=== PATIENT | male | born 1965 | race Caucasian/White ===

== ENCOUNTER → 2016-11-18 | Outpatient (CLI) | payer OTHER ==
[~2016-11-18] MED LIST: A-G PROFEN200 MG PO; ALDACTONE25 MG PO; AUGMENTIN 875 M1 TAB PO; B-1100 MG PO; BACTRIM DS 8001 TA1 PO; CIPRO500 MG PO; CLARITIN10 MG PO; CORICIDIN 325 M1 TAB; DIGOXIN0.25 MG PO; DOXYCYCLINE MO100 MG PO; DOXYCYLINE50 MG PO; FOLIC ACID1 MG PO; IBUPROFEN 30 M800 MG PO; KEFLEX250 MG PO; KEFLEX500 MG PO; LIBRIUM10 MG PO; LIDEX 0.05% CRE15 GM T; LISINOPRIL5 MG PO; MEDROL DOSEPAK4 MG PO; METOPROLOL50 MG PO; MULTIVITAMIN1 CTB PO; PHENERGAN W/CO480 ML PO; PREDNICOT20 MG PO; PROAIR HFA0.09 MG/AC IH; PROVENTIL0.09 MG/AC IH; VENTOLIN0.09 MG/AC PO; VICODIN ES 7501 TAB PO; ZOFRAN4 MG PO
== END | disposition home or self-care (01) ==
LOC: CARD 10:25
DX: I42.9 Cardiomyopathy, unspecified (principal); I07.1 Rheumatic tricuspid insufficiency; I37.1 Nonrheumatic pulmonary valve insufficiency

== ENCOUNTER 2016-12-11 11:21 | Inpatient (IN) | payer OTHER ==
[~2016-12-11] VITALS: Ht 180.3 cm; Wt 75.0 kg
[2016-12-11 12:04] VITALS: BP 142/94
[2016-12-11 12:45] LABS: BILIRUBIN NEGATIVE (NEGATIVE); BLOOD NEGATIVE (NEGATIVE); CLARITY CLEAR (CLEAR); COLOR YELLOW (YELLOW); GLUCOSE NEGATIVE (NEGATIVE); KETONE NEGATIVE (NEGATIVE); LEUKO ESTERASE NEGATIVE (NEGATIVE); NITRITE NEGATIVE (NEGATIVE); PH 5.5 (5.0-9.0); PROTEIN NEGATIVE (NEGATIVE); SPECIFIC GRAVITY <= 1.005 (1.005-1.030); UROBILINOGEN 0.2 E.U./dl (0.2-1.0)
[2016-12-11 12:46] LABS: BASO % 0.4 % (0.0-1.0); EOS # 0.2 10*3/uL (0.0-0.4); EOS % 2.2 % (1.0-4.0); HEMATOCRIT 40.2 % (42.0-52.0); HEMOGLOBIN 13.7 g/dl (14.0-18.0); IG # 0.1 10*3/uL (0.0-0.1); LYMPH # 2.5 10*3/uL (1.3-4.4); LYMPH % 32.2 % (27.0-41.0); MEAN CELL VOLUME 89.9 fl (80.0-94.0); MEAN CORPUSCULAR HGB 30.6 pg (27.0-31.0); MEAN CORPUSCULAR HGB CONC 34.1 g/dl (33.0-37.0); MEAN PLATELET VOLUME 9.2 fl (9.6-12.3); MONO # 0.9 10*3/uL (0.1-1.0); MONO % 11.3 % (3.0-9.0); NEUT # 4.2 10*3/uL (2.3-7.9); NEUT % 53.3 % (47.0-73.0); PLATELET COUNT AUTOMATED 163 10*3/uL (130-400); RED BLOOD COUNT 4.47 10*6/uL (4.50-5.90); RED CELL DISTRI WIDTH 13.8 % (0-14.5); WHITE BLOOD COUNT 7.9 10*3/uL (4.8-10.8)
[2016-12-11 12:51] LABS: URINE REFLEX COMMENT NO (NO)
[2016-12-11 12:54] LABS: URINE AMPHETAMINES < 1000 (1000ng/ml); URINE BARBITURATES < 200 (200ng/ml); URINE COCAINE < 300 (300ng/ml)
[2016-12-11 12:57] LABS: INTERNATIONAL NORM RATIO 0.9 (2.0-3.5); PROTHROMBIN TIME 9.4 SECONDS (9.0-12.4)
[2016-12-11 13:06] LABS: ALBUMIN 3.6 gm/dl (3.1-4.5); ALKALINE PHOSPHATASE 101 U/L (45-117); BILIRUBIN, TOTAL 0.4 mg/dl (0.2-1.0); BUN 13 mg/dl (7-24); CARBON DIOXIDE 26 mmol/L (21-32); CHLORIDE 105 mmol/L (98-107); EST GLOM FILT AFRICAN AMERICAN > 60 ml/min; GLUCOSE 98 mg/dL (65-99); POTASSIUM 4.1 mmol/L (3.5-5.1); SGOT/AST 20 IU/L (3-35); SGPT/ALT 21 U/L (12-78); SODIUM 138 mmol/L (136-145)
[2016-12-11 13:07] LABS: TOTAL PROTEIN 6.6 gm/dL (6.4-8.2)
[2016-12-11 16:00] VITALS: BP 130/85
[2016-12-11] MEDS ORDERED: NATURE'S BLEND F1 MG PO (16:52)
[2016-12-11] MEDS ORDERED: THIAMINE HCL50 MG PO (16:52)
[2016-12-11] MEDS ORDERED: ALDACTONE25 M1 PO (16:58)
[2016-12-11] MEDS ORDERED: ZESTRIL,PRINIVIL5 MG PO (16:58)
[2016-12-11] MEDS ORDERED: REMERON15 M2 PO (17:00)
[2016-12-11] MEDS ORDERED: ZOLOFT100 MG PO (17:00)
[2016-12-11 20:00] VITALS: BP 122/86
[2016-12-12] VITALS: BP 121/80
[2016-12-12 04:30] VITALS: BP 130/86
[2016-12-12 08:00] VITALS: BP 128/86
[2016-12-12 12:00] VITALS: BP 136/93
[2016-12-12 16:00] VITALS: BP 115/70
[2016-12-12 20:00] VITALS: BP 105/74
[2016-12-13] VITALS: BP 95/66
[2016-12-13 08:00] VITALS: BP 111/80
[2016-12-13 12:00] VITALS: BP 106/69
== END 2016-12-13 16:11 | disposition left against medical advice (07) | DRG 894 ==
LOC: 4E 11:21
PROVIDERS: Internal Medicine Nephrology
DX: F10.239 Alcohol dependence with withdrawal, unspecified (principal); I50.32 Chronic diastolic (congestive) heart failure; Z95.0 Presence of cardiac pacemaker; E78.5 Hyperlipidemia, unspecified; I45.6 Pre-excitation syndrome; F17.210 Nicotine dependence, cigarettes, uncomplicated; Z80.1 Family history of malignant neoplasm of trachea, bronchus and lung; Z83.3 Family history of diabetes mellitus; Z82.49 Family history of ischemic heart disease and other diseases of the circulatory system; Z88.1 Allergy status to other antibiotic agents; R00.2 Palpitations; I51.9 Heart disease, unspecified; D64.9 Anemia, unspecified; R19.7 Diarrhea, unspecified

== ENCOUNTER 2016-12-14 15:07 | Inpatient (IN) | payer OTHER ==
[~2016-12-14] VITALS: Ht 180.3 cm; Wt 75.7 kg
[~2016-12-14 15:07] MED LIST changes: +ALDACTONE25 M1 PO; +NATURE'S BLEND F1 MG PO; +REMERON15 M2 PO; +THIAMINE HCL50 MG PO; +ZESTRIL,PRINIVIL5 MG PO; +ZOLOFT100 MG PO
[2016-12-14 15:29] VITALS: BP 108/88
[2016-12-14 17:24] LABS: BASO % 0.5 % (0.0-1.0); EOS # 0.1 10*3/uL (0.0-0.4); EOS % 1.6 % (1.0-4.0); HEMATOCRIT 44.2 % (42.0-52.0); HEMOGLOBIN 14.8 g/dl (14.0-18.0); IG # 0.1 10*3/uL (0.0-0.1); LYMPH # 2.3 10*3/uL (1.3-4.4); LYMPH % 30.3 % (27.0-41.0); MEAN CELL VOLUME 93.1 fl (80.0-94.0); MEAN CORPUSCULAR HGB 31.2 pg (27.0-31.0); MEAN CORPUSCULAR HGB CONC 33.5 g/dl (33.0-37.0); MEAN PLATELET VOLUME 9.1 fl (9.6-12.3); MONO % 13.6 % (3.0-9.0); NEUT # 4.1 10*3/uL (2.3-7.9); NEUT % 53.2 % (47.0-73.0); PLATELET COUNT AUTOMATED 223 10*3/uL (130-400); RED BLOOD COUNT 4.75 10*6/uL (4.50-5.90); RED CELL DISTRI WIDTH 14.3 % (0-14.5); WHITE BLOOD COUNT 7.6 10*3/uL (4.8-10.8)
[2016-12-14 17:31] LABS: INTERNATIONAL NORM RATIO 0.9 (2.0-3.5); PROTHROMBIN TIME 9.5 SECONDS (9.0-12.4)
[2016-12-14 17:38] LABS: ALBUMIN 3.7 gm/dl (3.1-4.5); ALKALINE PHOSPHATASE 99 U/L (45-117); BILIRUBIN, TOTAL 0.6 mg/dl (0.2-1.0); BUN 11 mg/dl (7-24); CARBON DIOXIDE 25 mmol/L (21-32); CHLORIDE 105 mmol/L (98-107); EST GLOM FILT AFRICAN AMERICAN > 60 ml/min; GLUCOSE 60 mg/dL (65-99); POTASSIUM 4.5 mmol/L (3.5-5.1); SGOT/AST 17 IU/L (3-35); SGPT/ALT 22 U/L (12-78); SODIUM 139 mmol/L (136-145); TOTAL PROTEIN 7.1 gm/dL (6.4-8.2)
[2016-12-14 20:00] VITALS: BP 91/52
[2016-12-14 22:45] LABS: BILIRUBIN NEGATIVE (NEGATIVE); BLOOD NEGATIVE (NEGATIVE); CLARITY CLEAR (CLEAR); COLOR YELLOW (YELLOW); GLUCOSE NEGATIVE (NEGATIVE); KETONE NEGATIVE (NEGATIVE); LEUKO ESTERASE NEGATIVE (NEGATIVE); NITRITE NEGATIVE (NEGATIVE); PH 5.5 (5.0-9.0); PROTEIN NEGATIVE (NEGATIVE); UROBILINOGEN 0.2 E.U./dl (0.2-1.0)
[2016-12-14 22:51] LABS: RBC 0-2 rbc/hpf (0-2)
[2016-12-14 22:52] LABS: URINE REFLEX COMMENT NO (NO)
[2016-12-14 22:59] LABS: URINE AMPHETAMINES < 1000 (1000ng/ml); URINE BARBITURATES < 200 (200ng/ml)
[2016-12-14 23:02] LABS: URINE COCAINE < 300 (300ng/ml)
[2016-12-15] VITALS: BP 90/62
[2016-12-15 08:00] VITALS: BP 125/78
[2016-12-15] MEDS ORDERED: METOPROLOL SUC100 M2 PO (10:13)
[2016-12-15] MEDS ORDERED: VITAMIN D50000 I3 PO (10:13)
[2016-12-15] MEDS ORDERED: ASPIRIN CHILDRE81 MG PO (10:14)
[2016-12-15] MEDS ORDERED: ALDACTONE25 M1 PO (10:14)
[2016-12-15 12:00] VITALS: BP 98/66
[2016-12-15 16:00] VITALS: BP 98/67; BP 98/867
[2016-12-15 20:00] VITALS: BP 114/55
[2016-12-16] VITALS: BP 108/56
[2016-12-16 04:00] VITALS: BP 101/66
[2016-12-16 08:00] VITALS: BP 119/75
[2016-12-16 12:00] VITALS: BP 119/80
[2016-12-16 16:46] VITALS: BP 101/66
[2016-12-16 20:00] VITALS: BP 122/77
[2016-12-17] VITALS: BP 93/54
[2016-12-17 06:40] LABS: BASO % 0.4 % (0.0-1.0); EOS # 0.2 10*3/uL (0.0-0.4); EOS % 2.3 % (1.0-4.0); HEMATOCRIT 40.3 % (42.0-52.0); HEMOGLOBIN 13.5 g/dl (14.0-18.0); LYMPH # 2.7 10*3/uL (1.3-4.4); LYMPH % 36.3 % (27.0-41.0); MEAN CELL VOLUME 92.6 fl (80.0-94.0); MEAN CORPUSCULAR HGB CONC 33.5 g/dl (33.0-37.0); MEAN PLATELET VOLUME 9.3 fl (9.6-12.3); MONO # 1.1 10*3/uL (0.1-1.0); MONO % 15.5 % (3.0-9.0); NEUT # 3.3 10*3/uL (2.3-7.9); PLATELET COUNT AUTOMATED 238 10*3/uL (130-400); RED BLOOD COUNT 4.35 10*6/uL (4.50-5.90); RED CELL DISTRI WIDTH 14.2 % (0-14.5); WHITE BLOOD COUNT 7.3 10*3/uL (4.8-10.8)
[2016-12-17 07:10] LABS: EST GLOM FILT AFRICAN AMERICAN > 60 ml/min
[2016-12-17 08:00] VITALS: BP 96/58
[2016-12-17 12:00] VITALS: BP 103/68
== END 2016-12-17 13:10 | disposition left against medical advice (07) | DRG 894 ==
LOC: ED 15:07 → 5E 16:44 → EDHOLD 16:44 → 5E 16:47
PROVIDERS: Emergency Medicine; Hospitalist
DX: F10.239 Alcohol dependence with withdrawal, unspecified (principal); I50.32 Chronic diastolic (congestive) heart failure; I45.6 Pre-excitation syndrome; E78.5 Hyperlipidemia, unspecified; F41.9 Anxiety disorder, unspecified; R42 Dizziness and giddiness; F17.210 Nicotine dependence, cigarettes, uncomplicated; Y90.9 Presence of alcohol in blood, level not specified; Z88.1 Allergy status to other antibiotic agents; Z95.0 Presence of cardiac pacemaker; Z80.1 Family history of malignant neoplasm of trachea, bronchus and lung; Z83.3 Family history of diabetes mellitus; Z71.6 Tobacco abuse counseling; F10.229 Alcohol dependence with intoxication, unspecified

== ENCOUNTER 2017-02-09 11:04 | Emergency (ER) | payer OTHER ==
[~2017-02-09] VITALS: Ht 180.3 cm; Wt 74.8 kg
[~2017-02-09 11:04] MED LIST changes: +ASPIRIN CHILDRE81 MG PO; +METOPROLOL SUC100 M2 PO; +VITAMIN D50000 I3 PO
[2017-02-09 11:57] LABS: BASO % 0.4 % (0.0-1.0); EOS # 0.1 10*3/uL (0.0-0.4); EOS % 0.8 % (1.0-4.0); HEMATOCRIT 47.2 % (42.0-52.0); HEMOGLOBIN 16.4 g/dl (14.0-18.0); LYMPH # 2.6 10*3/uL (1.3-4.4); LYMPH % 23.5 % (27.0-41.0); MEAN CELL VOLUME 86.3 fl (80.0-94.0); MEAN CORPUSCULAR HGB CONC 34.7 g/dl (33.0-37.0); MEAN PLATELET VOLUME 9.7 fl (9.6-12.3); MONO # 0.9 10*3/uL (0.1-1.0); NEUT # 7.5 10*3/uL (2.3-7.9); NEUT % 66.9 % (47.0-73.0); PLATELET COUNT AUTOMATED 235 10*3/uL (130-400); RED BLOOD COUNT 5.47 10*6/uL (4.50-5.90); RED CELL DISTRI WIDTH 13.4 % (0-14.5); WHITE BLOOD COUNT 11.2 10*3/uL (4.8-10.8)
[2017-02-09 12:13] LABS: ALBUMIN 3.4 gm/dl (3.1-4.5); ALKALINE PHOSPHATASE 121 U/L (45-117); BUN 7 mg/dl (7-24); CHLORIDE 97 mmol/L (98-107); MAGNESIUM 2.1 mg/dL (1.5-2.1); POTASSIUM 3.3 mmol/L (3.5-5.1); SGOT/AST 20 IU/L (3-35); SGPT/ALT 23 U/L (12-78); SODIUM 134 mmol/L (136-145); TOTAL PROTEIN 7.4 gm/dL (6.4-8.2); TROPONIN I < 0.015 ng/ml (<0.045)
[2017-02-09] MEDS ORDERED: PREDNISONE20 M1 PO (14:12)
[2017-02-09] MEDS ORDERED: TESSALON PERLE100 M1 PO (14:12)
[2017-02-09] MEDS ORDERED: AUGMENTIN 875875 MG PO (14:12)
== END 2017-02-09 17:07 | disposition home or self-care (01) ==
LOC: ED 11:04
PROVIDERS: Nurse Practitioner Family
DX: J20.9 Acute bronchitis, unspecified (principal); F17.200 Nicotine dependence, unspecified, uncomplicated; Z79.899 Other long term (current) drug therapy; Z88.1 Allergy status to other antibiotic agents; Z88.8 Allergy status to other drugs, medicaments and biological substances; Z79.82 Long term (current) use of aspirin; Z98.890 Other specified postprocedural states

== ENCOUNTER 2017-07-25 14:53 | Emergency (ER) | payer OTHER ==
[~2017-07-25] VITALS: Ht 180.3 cm; Wt 77.1 kg
[~2017-07-25 14:53] MED LIST changes: +AUGMENTIN 875875 MG PO; +PREDNISONE20 M1 PO; +TESSALON PERLE100 M1 PO
[2017-07-25 15:21] LABS: HEMOGLOBIN 16.3 g/dl (14.0-18.0); MEAN CELL VOLUME 89.9 fl (80.0-94.0); MEAN CORPUSCULAR HGB 30.5 pg (27.0-31.0); MEAN PLATELET VOLUME 9.1 fl (9.6-12.3); PLATELET COUNT AUTOMATED 228 10*3/uL (130-400); RED BLOOD COUNT 5.34 10*6/uL (4.50-5.90); RED CELL DISTRI WIDTH 12.1 % (0-14.5); WHITE BLOOD COUNT 8.6 10*3/uL (4.8-10.8)
[2017-07-25 15:38] LABS: ALBUMIN 3.9 gm/dl (3.1-4.5); ALKALINE PHOSPHATASE 122 U/L (45-117); BUN 9 mg/dl (7-24); CHLORIDE 100 mmol/L (98-107); CREATININE 1.14 mg/dL (0.70-1.30); POTASSIUM 3.6 mmol/L (3.5-5.1); SGOT/AST 16 IU/L (3-35); SGPT/ALT 21 U/L (12-78); SODIUM 135 mmol/L (136-145); TOTAL PROTEIN 7.5 gm/dL (6.4-8.2)
[2017-07-25 15:45] LABS: BASOPHILS 1 % (0-1); TOTAL CELLS COUNTED 100 #CELLS
[2017-07-25 15:46] LABS: PLATELET SUFFICIENCY NORMAL (NORMAL)
[2017-07-25] MEDS ORDERED: LEVOFLOXACIN500 MG PO (16:01)
[2017-07-25] MEDS ORDERED: PREDNISONE10 MG PO (16:01)
== END 2017-07-25 16:07 | disposition home or self-care (01) ==
LOC: ED 14:53
PROVIDERS: Registered Nurse
DX: J20.9 Acute bronchitis, unspecified (principal); L25.9 Unspecified contact dermatitis, unspecified cause; F10.10 Alcohol abuse, uncomplicated; Z88.1 Allergy status to other antibiotic agents; Z88.8 Allergy status to other drugs, medicaments and biological substances; Z79.82 Long term (current) use of aspirin; Z79.899 Other long term (current) drug therapy

== ENCOUNTER 2023-10-20 19:19 | Emergency (ER) | payer OTHER ==
[~2023-10-20] VITALS: Ht 180.3 cm; Wt 81.6 kg
[~2023-10-20 19:19] MED LIST changes: +LEVOFLOXACIN500 MG PO; +PREDNISONE10 MG PO
[2023-10-20 19:36] LABS: BASO # 0.1 10*3/uL (0.0-0.1); BASO % 0.7 % (0.0-1.0); EOS # 0.4 10*3/uL (0.0-0.4); EOS % 4.3 % (1.0-4.0); HEMATOCRIT 42.6 % (42.0-52.0); LYMPH # 3.2 10*3/uL (1.3-4.4); LYMPH % 30.9 % (27.0-41.0); MEAN CELL VOLUME 90.6 fl (80.0-94.0); MEAN CORPUSCULAR HGB CONC 33.1 g/dl (33.0-37.0); MEAN PLATELET VOLUME 9.4 fl (9.6-12.3); MONO # 0.9 10*3/uL (0.1-1.0); MONO % 8.7 % (3.0-9.0); NEUT # 5.6 10*3/uL (2.3-7.9); NEUT % 55.1 % (47.0-73.0); PLATELET COUNT AUTOMATED 251 10*3/uL (130-400); RED CELL DISTRI WIDTH 13.5 % (0-14.5); WHITE BLOOD COUNT 10.2 10*3/uL (4.8-10.8)
[2023-10-20] MEDS ORDERED: IOHEXOL 300 MG/ML 100 ML VIAL IV ONE (19:40)
[2023-10-20 19:54] LABS: BUN 11 mg/dl (9-23); CHLORIDE 105 mmol/L (98-107); POTASSIUM 3.9 mmol/L (3.4-5.1)
[2023-10-20] MEDS ORDERED: Thiamine 200 MG/2 ML VIAL IV ONE (21:20)
[2023-10-20] MEDS ORDERED: SODIUM CHLORIDE 0.9% 1,000 ML IV ONE (21:25)
== END 2023-10-20 22:52 | disposition home or self-care (01) ==
LOC: ED
PROVIDERS: Internal Medicine
DX: Z04.1 Encounter for examination and observation following transport accident (principal); F10.90 Alcohol use, unspecified, uncomplicated; F17.200 Nicotine dependence, unspecified, uncomplicated; Z88.1 Allergy status to other antibiotic agents; Z79.899 Other long term (current) drug therapy; Z79.2 Long term (current) use of antibiotics; Z79.82 Long term (current) use of aspirin; Z98.890 Other specified postprocedural states; Y90.8 Blood alcohol level of 240 mg/100 ml or more; V89.2XXA Person injured in unspecified motor-vehicle accident, traffic, initial encounter; Y93.89 Activity, other specified; Y92.488 Other paved roadways as the place of occurrence of the external cause; Y99.8 Other external cause status